=== PATIENT | female | born 2000 | race Caucasian/White ===

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

== ENCOUNTER 2021-02-01 19:50 | Emergency (ER) | payer MEDICAID ==
--- NOTE | 2021-02-01 21:17 | EDM.PDOC ---
ED HPI GENERAL MEDICAL PROBLEM - General Chief Complaint: Respiratory Problem Stated Complaint: 8 WEEKS , CONGESTION, LOSS OF TASTE Time Seen by Provider: 02/01/21 20:08 Source of Information: Reports: Patient History Limitations: Reports: No Limitations - History of Present Illness INITIAL COMMENTS - FREE TEXT/NARRATIVE: HISTORY AND PHYSICAL: History of present illness: Patient is a 20-year-old female who presents emergency room today with concern of possible COVID-19 infection. Patient states that over the past 3 days she has had a stuffy/runny nose and states that she was in contact with a friend who also had similar symptoms. Patient states that she has had a slight throat discomfort but states that she does not really have a sore throat and intermittent coughing. Patient states she lost her taste and smell this morning which is what prompted her to think that this was not a common cold and was in fact COVID-19. Patient states that she is approximately 8 weeks in gestation and follows with Dr. Aguilar at [facility] and denies any abdominal pain, cramping, change in discharge, or vaginal bleeding. Patient states that she has an appointment tomorrow at [facility] which is what brought her to the emergency room because she was concerned she possibly had COVID-19 and did not [facility] other moms or babies. Patient denies any other resuscitative symptoms. Patient denies fever, chills, chest pain, shortness of breath. Denies headache, neck stiff ness, change in vision, syncope, or near syncope. Denies nausea, vomiting, abdominal pain, diarrhea, constipation, or dysuria. Has not noted any blood in urine or stool. Patient has been eating and drinking appropriately. Review of systems: As per history of present illness and below otherwise all systems reviewed and negative. Past medical history: As per history of present illness and as reviewed below otherwise noncontributory. Surgical history: As per history of present illness and as reviewed below otherwise noncontributory. Social history: See social history for further information Family history: As per history of present illness and as reviewed below otherwise noncontributory. Physical exam: General: Patient is alert, oriented, and in no acute distress. Patient sitting comfortably on exam table. Vitals stable and reviewed by me. HEENT: Atraumatic, normocephalic, pupils equal and reactive bilaterally, negative for conjunctival pallor or scleral icterus, mucous membranes moist, TMs normal bilaterally, throat clear, neck supple, nontender, trachea midline. No drooling or trismus noted. No meningeal signs. No hot potato voice noted. Lungs: Clear to auscultation, breath sounds equal bilaterally, chest nontender. Heart: S1S2, regular rate and rhythm without overt murmur Abdomen: Soft, nondistended, nontender. Negative for masses or hepatosplenomegaly. Negative for costovertebral tenderness. Pelvis: Stable nontender. Genitourinary: Deferred. Rectal: Deferred. Skin: Intact, warm, dry. No lesions or rashes noted. Extremities: Atraumatic, negative for cords or calf pain. Neurovascular unremarkable. Neuro: Awake, alert, oriented. Cranial nerves II through XII unremarkable. Cerebellum unremarkable. Motor and sensory unremarkable throughout. Exam nonfocal. Notes: Strict return precautions thoroughly discussed with patient. Discussed importance for follow-up with primary care provider and women's health care provider. Voices understanding and is agreeable to plan of care. Denies any further questions or concerns at this time. Diagnostics: COVID-19 Therapeutics: None Prescription: None Impression: COVID-19 viral infection Plan: 1. Your COVID-19 screening is positive. That means you do have the coronavirus and are considered contagious. Your vital signs and oxygen saturation are well enough that you were able to monitor your symptoms at home. Continue to monitor for trouble breathing, new confusion or inability to arouse, bluish lips or face or any of the other symptoms we discussed -if this occurs please return to the emergency room.Continue to monitor your health at home for worsening symptoms so that you can be taken care of and treated quickly if needed. 2. Please self quarantine until 10 days have passed since your symptoms began AND you are fever free (<100.4 degrees fahrenheit) for 24 hours without the use of fever-reducing medications AND symptoms are improving. You should restrict activities outside of your home, except for getting medical care. Do not go to work, school, or public areas. Avoid using public transportation, ride-sharing, or taxis. Inform any persons that you have been in contact with since you started becoming symptomatic that you have tested positive; they should be made aware and take the appropriate steps as needed. 4. You may take Tylenol as needed for pain and fever management as directed per the bottle. This is safe to use in . 5. The [facility] department will be calling you and following up with you. The [place] COVID 19 Hotline phone number , They are open Sunday - Sunday 7am - 7pm. Follow up with your primary care provider for re-evaluation and re-testing after quarantine and discuss when you should be seen. 6. For more specific guidelines regarding isolation/quarantine please visit this website. https://www.health.pr.gov/sites/www/files/documents/Files/SHERI/coronavirus/Factsh eet_for_People_With_COVID-19.pdf Definitive disposition and diagnosis as appropriate pending reevaluation and review of above. - Related Data Allergies Allergy/AdvReac Type Severity Reaction Status Date / Time No Known Allergies Allergy Verified 02/01/21 20:12 Home Meds: Home Meds . 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: Musculoskeletal History: Reports: None Neurological History: Reports: None Psychiatric History: Reports: None Endocrine/Metabolic History: Reports: None Hematologic History: Reports: None Immunologic History: Reports: None Oncologic (Cancer) History: Reports: None Dermatologic History: Reports: None - Infectious Disease History Infectious Disease History: Reports: None - Past Surgical History Head Surgeries/Procedures: Reports: None Social & Family History - Family History Family Medical History: No Pertinent Family History - Tobacco Use Tobacco Use Status *Q: Never Tobacco User Second Hand Smoke Exposure: No - Caffeine Use Caffeine Use: Reports: None - Recreational Drug Use Recreational Drug Use: No ED ROS GENERAL - Review of Systems Review Of Systems: Comprehensive ROS is negative, except as noted in HPI. ED EXAM, GENERAL - Physical Exam Exam: See Below (see dictation) Course - Vital Signs Last Recorded V/S: Last Vital Signs Temp 98.2 F 02/01/21 20:08 Pulse 98 08/17/21 20:08 Resp 18 02/01/21 20:08 BP 139/96 H 02/01/21 20:08 Pulse Ox 98 02/01/21 20:08 - Orders/Labs/Meds Labs: Laboratory Tests 02/01/21 Range/Units 20:15 SARS-CoV-2 RNA (MIGUEL ANGEL) POSITIVE H (NEGATIVE) Departure - Departure Time of Disposition: 21:13 Disposition: Home, Self-Care 01 Clinical Impression: COVID-19 virus infection - Discharge Information Referrals: PCP,Not In Area [Primary Care Provider] - Additional Instructions: The following information is given to patients seen in the emergency department who are being discharged to home. This information is to outline your options for follow-up care. We provide all patients seen in our emergency department with a follow-up referral. The need for follow-up, as well as the timing and circumstances, are variable depending upon the specifics of your emergency department visit. If you don't have a primary care physician on staff, we will provide you with a referral. We always advise you to contact your personal physician following an emergency department visit to inform them of the circumstance of the visit and for follow-up with them and/or the need for any referrals to a consulting sp ecialist. The emergency department will also refer you to a specialist when appropriate. This referral assures that you have the opportunity for follow-up care with a specialist. All of these measure are taken in an effort to provide you with optimal care, which includes your follow-up. Under all circumstances we always encourage you to contact your private physician who remains a resource for coordinating your care. When calling for follow-up care, please make the office aware that this follow-up is from your recent emergency room visit. If for any reason you are refused follow-up, please contact the [facility] Emergency Department at and asked to speak to the emergency department charge nurse. [facility] [address] [place] [id number] [facility] [address] [place] [address] [facility] [address] [place] [address] 1. Your COVID-19 screening is positive. That means you do have the coronavirus and are considered contagious. Your vital signs and oxygen saturation are well enough that you were able to monitor your symptoms at home. Continue to monitor for trouble breathing, new confusion or inability to arouse, bluish lips or face or any of the other symptoms we discussed -if this occurs please return to the emergency room.Continue to monitor your health at home for worsening symptoms so that you can be taken care of and treated quickly if needed. 2. Please self quarantine until 10 days have passed since your symptoms began AND you are fever free (<100.4 degrees fahrenheit) for 24 hours without the use of fever-reducing medications AND symptoms are improving. You should restrict activities outside of your home, except for getting medical care. Do not go to work, school, or public areas. Avoid using public transportation, ride-sharing, or taxis. Inform any persons that you have been in contact with since you started becoming symptomatic that you have tested positive; they should be made aware and take the appropriate steps as needed. 4. You may take Tylenol as needed for pain and fever management as directed per the bottle. This is safe to use in . 5. The [facility] health department will be calling you and following up with you. The [place] COVID 19 Hotline phone number , They are open Sunday - Sunday 7am - 7pm. Follow up with your primary care provider for re-evaluation and re-testing after quarantine and discuss when you should be seen. 6. For more specific guidelines regarding isolation/quarantine please visit this website. https://www.health.[place].gov/sites/www/files/documents/Files/SEHRI/coronavirus/Factsh eet_for_People_With_COVID-19.pdf Sepsis Event Note (ED) - Evaluation Sepsis Screening Result: No Definite Risk - Focused Exam Vital Signs: Vital Signs Temp Pulse Resp BP Pulse Ox 02/01/21 20:08 98.2 F 98 18 139/96 H 98
== END 2021-02-01 21:44 | disposition home or self-care (01) ==
LOC: MW.ED 19:50
DX: O98.511 Other viral diseases complicating pregnancy, first trimester (principal); U07.1 COVID-19; Z3A.08 8 weeks gestation of pregnancy
CPT/HCPCS: 99283; U0002

== ENCOUNTER 2021-04-13 18:48 | Emergency (ER) | payer BC ==
[2021-04-13] MEDS ORDERED: Sodium Chloride 0.9% 1,000 ML IV ONE (20:58)
[2021-04-13 21:41] LABS: BLOOD UREA NITROGEN,BUN 9 mg/dL (7.0-18.0); CARBON DIOXIDE,CO2 22.2 mmol/L (21.0-32.0); CHLORIDE,CL 101 mmol/L (98-107); GLUCOSE RANDOM 80 mg/dL (74-106); LIPASE 64 U/L (73-393); POTASSIUM,K 3.3 mmol/L (3.5-5.1); SODIUM,NA 137 mmol/L (136-145)
--- NOTE | 2021-04-13 21:42 | EDM.PDOC ---
<Jose Macedo - Last Filed: 04/14/21 06:49> ED HPI GENERAL MEDICAL PROBLEM - General Chief Complaint: Abdominal Pain Stated Complaint: 17 WEEKS , LOWER ABDOMINAL PAIN Time Seen by Provider: 04/13/21 20:24 - History of Present Illness INITIAL COMMENTS - FREE TEXT/NARRATIVE: Patient was signed out to me by Hannah Villagomez PA-C pending ultrasound at 10 PM. I promptly performed a detailed physical examination and my examination was done after ED treatments were initiated by the signout provider. Patient has been under the care of previous provider up until this point. On my reevaluation patient was sitting comfortably and had no pain on examination. At this time ultrasound was pending. The radiological images were viewed by myself along with reading the report from the radiologist. OB ultrasound reveals single live intrauterine gestation with estimated menstrual age of 17 weeks 6 days. No acute abnormalities. After imaging I did discuss results with the patient. At this time she was stable for discharge. She was given strict return precautions. She was amenable discharge and had no further questions DISPOSITION: The patient was discharged home in stable condition. The patient will follow up with her aerodynamicist at her scheduled appointment CONDITION: Fair PROCEDURES: None FINAL IMPRESSION(S)/DIAGNOSES: 1. Acute pelvic pain in Jose Macedo M.D. - Related Data Allergies Allergy/AdvReac Type Severity Reaction Status Date / Time No Known Allergies Allergy Verified 04/13/21 20:01 Home Meds: Home Meds . [No Known Home Meds] 07/10/19 [History] Departure - Departure Time of Disposition: 00:36 Disposition: Home, Self-Care 01 Condition: Good Clinical Impression: Pelvic pain affecting - Discharge Information *PRESCRIPTION DRUG MONITORING PROGRAM REVIEWED*: No *COPY OF PRESCRIPTION DRUG MONITORING REPORT IN PATIENT ANDRÉS: No Instructions: Round Ligament Pain, Pelvic Pain, Female, [id number] Referrals: PCP,None [Primary Care Provider] - Forms: ED Department Discharge Additional Instructions: You were evaluated today on an emergent basis. At this time your imaging was normal. Given that you do not have any vaginal bleeding and your pain has significantly improved I do not believe that you need to be observed here in the emergency department or the hospital. I recommend that you follow-up with your aerodynamicist for further evaluation. As discussed if you have any worsening pain please return to the emergency department for further evaluation. This includes vaginal bleeding. [facility] [address] [place] [address] [facility] [address] [place] [id number] The patient is informed of any results of their evaluation and diagnostic workup and all questions are answered. They are given discharge instructions and return precautions. The patient is stable for discharge. The patient states they understand and agree with the plan and that they will return if their symptoms get worse or if they have any new concerns. The following information is given to patients seen in the emergency department who are being discharged to home. This information is to outline your options for follow-up care. We provide all patients seen in our emergency department with a follow-up referral. The need for follow-up, as well as the timing and circumstances, are variable depending upon the specifics of your emergency department visit. If you don't have a primary care physician on staff, we will provide you with a referral. We always advise you to contact your personal physician following an emergency department visit to inform them of the circumstance of the visit and for follow-up with them and/or the need for any referrals to a consulting specialist. The emergency department will also refer you to a specialist when appropriate. This referral assures that you have the opportunity for follow-up care with a specialist. All of these measure are taken in an effort to provide you with optimal care, which includes your follow-up. Under all circumstances we always encourage you to contact your private physician who remains a resource for coordinating your care. When calling for follow-up care, please make the office aware that this follow-up is from your recent emergency room visit. If for any reason you are refused follow-up, please contact the [facility] Emergency Department at and asked to speak to the emergency department charge nurse. <Hannah Villagomez - Last Filed: 04/15/21 11:58> ED HPI GENERAL MEDICAL PROBLEM - General Source of Information: Reports: Patient History Limitations: Reports: No Limitations - History of Present Illness INITIAL COMMENTS - FREE TEXT/NARRATIVE: HISTORY AND PHYSICAL: History of present illness: Patient is a 20-year-old female who presents emergency room today with concern of 10 out of 10 episodes of lower abdominal pain in second trimester . Patient states that she is 17 weeks and 3 days and has had an ultrasound confirming this and follows with Dr. Aguilar at [facility]. Patient states that today when she was working, she began developing severe lower abdominal pain and states that work ended up sending her home. Patient states that she had to call her significant other to come pick her up as the pain was not able to be tolerated. Patient denies any change in vaginal discharge or vaginal bleeding. Patient states that she has not had any complications thus far this and denies any trauma or injury. Patient states that she has not yet had her anatomy scan and has a scheduled this next week. Patient states that her pain is slightly improved now in the emergency room but she continues to have episodes where it reoccurs. Patient rates her pain currently a 4 out of 10. Patient denies any health history or any other symptoms or concerns. Patient denies fever, chills, chest pain, shortness of breath, or cough. Denies headache, neck stiff ness, change in vision, syncope, or near syncope. Denies nausea, vomiting, diarrhea, constipation, or dysuria. Has not noted any blood in urine or stool. Patient has been eating and drinking appropriately. Review of systems: As per history of present illness and below otherwise all systems reviewed and negative. Past medical history: As per history of present illness and as reviewed below otherwise noncontributory. Surgical history: As per history of present illness and as reviewed below otherwise noncontributory. Social history: See social history for further information Family history: As per history of present illness and as reviewed below otherwise noncontributory. Physical exam: General: Patient is alert, oriented, and in no acute distress. Patient laying comfortably on exam table. Vitals stable and reviewed by me. HEENT: Atraumatic, normocephalic, pupils equal and reactive bilaterally, negative for conjunctival pallor or scleral icterus, mucous membranes moist, neck supple, nontender, trachea midline. No drooling or trismus noted. No meningeal signs. No hot potato voice noted. Lungs: Clear to auscultation, breath sounds equal bilaterally, chest nontender. Heart: S1S2, regular rate and rhythm without overt murmur Abdomen: Exam of abdomen is limited due to BMI of 39.9. Otherwise, mild- moderate suprapubic tenderness without guarding, negative rebound. Otherwise, Soft, nondistended. Negative for masses or hepatosplenomegaly. Negative for costovertebral tenderness. Pelvis: Stable nontender. Genitourinary: Deferred. Rectal: Deferred. Skin: Intact, warm, dry. No lesions or rashes noted. Extremities: Atraumatic, negative for cords or calf pain. Neurovascular unremarkable. Neuro: Awake, alert, oriented. Cranial nerves II through XII unremarkable. Cerebellum unremarkable. Motor and sensory unremarkable throughout. Exam nonfocal. Notes: heart tones at bedside 145 Patient is a 20-year-old otherwise female who presents emergency room today secondary to lower abdominal pain beginning this afternoon. Upon arrival to the ED, patient is vitally stable and well-appearing on exam. Patient does have mild to moderate suprapubic tenderness on exam without guarding and negative rebound or Snow sign. Will obtain basic lab work, provide fluid bolus, and second trimester ultrasound. CBC does show mild anemia with hemoglobin 11.5, hematocrit 34.4 with MCV and MCH microcytic at 79.6 and 26.6 respectively. Otherwise mild derangements of CBC unremarkable. Urinalysis does show 40 ketones, otherwise clear for infection. CMP does show mild hypokalemia at 3.3, otherwise mild derangements of CMP un remarkable. Dr. Macedo has assumed care of patient and will follow [place] diagnostics and disposition for patient. Diagnostics: CBC, CMP, UA, Lipase, 2nd trimester US Therapeutics: NS Prescription: Impression: Abdominal pain in Plan: Definitive disposition and diagnosis as appropriate pending reevaluation and review of above. 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: Musculoskeletal History: Reports: None Neurological History: Reports: None Psychiatric History: Reports: None Endocrine/Metabolic History: Reports: None Hematologic History: Reports: None Immunologic History: Reports: None Oncologic (Cancer) History: Reports: None Dermatologic History: Reports: None - Infectious Disease History Infectious Disease History: Reports: None - Past Surgical History Head Surgeries/Procedures: Reports: None Social & Family History - Family History Family Medical History: No Pertinent Family History - Caffeine Use Caffeine Use: Reports: None ED ROS GENERAL - Review of Systems Review Of Systems: Comprehensive ROS is negative, except as noted in HPI. ED EXAM, GENERAL - Physical Exam Exam: See Below (see dictation) Course - Vital Signs Last Recorded V/S: Last Vital Signs Temp 96.9 F 04/13/21 19:56 Pulse 79 04/14/21 00:55 Resp 17 04/14/21 00:55 BP 124/72 04/14/21 00:55 Pulse Ox 99 04/14/21 00:55 - Orders/Labs/Meds Labs: Laboratory Tests 04/13/21 04/13/21 04/13/21 Range/Units 20:55 21:15 21:15 WBC 10.11 (4.0-11.0) K/uL RBC 4.32 (4.30-5.90) M/uL Hgb 11.5 L (12.0-16.0) g/dL Hct 34.4 L (36.0-46.0) % MCV 79.6 L (80.0-98.0) fL MCH 26.6 L (27.0-32.0) pg MCHC 33.4 (31.0-37.0) g/dL RDW Std Deviation 40.3 (28.0-62.0) fl RDW Coeff of Sherry 14 (11.0-15.0) % Plt Count 250 (150-400) K/uL MPV 10.40 (7.40-12.00) fL Neut % (Auto) 72.7 (48.0-80.0) % Lymph % (Auto) 20.0 (16.0-40.0) % [place] % (Auto) 6.3 (0.0-15.0) % Eos % (Auto) 0.9 (0.0-7.0) % Baso % (Auto) 0.1 (0.0-1.5) % Neut # (Auto) 7.4 H (1.4-5.7) K/uL Lymph # (Auto) 2.0 (0.6-2.4) K/uL [place] # (Auto) 0.6 (0.0-0.8) K/uL Eos # (Auto) 0.1 (0.0-0.7) K/uL Baso # (Auto) 0.0 (0.0-0.1) K/uL Nucleated RBC % 0.0 /100WBC Nucleated RBCs # 0 K/uL Sodium 137 (136-145) mmol/L Potassium 3.3 L (3.5-5.1) mmol/L Chloride 101 (98-107) mmol/L Carbon Dioxide 22.2 (21.0-32.0) mmol/L BUN 9 (7.0-18.0) mg/dL Creatinine 0.5 L (0.6-1.0) mg/dL Est Cr Clr Drug Dosing 162.85 mL/min Estimated GFR (MDRD) > 60.0 ml/min Glucose 80 (74-106) mg/dL Calcium 9.4 (8.5-10.1) mg/dL Total Bilirubin 0.1 L (0.2-1.0) mg/dL AST 13 L (15-37) IU/L ALT 17 (14-63) IU/L Alkaline Phosphatase 46 (46-116) U/L Total Protein 7.6 (6.4-8.2) g/dL Albumin 3.0 L (3.4-5.0) g/dL Globulin 4.6 H (2.6-4.0) g/dL Albumin/Globulin Ratio 0.7 L (0.9-1.6) Lipase 64 L (73-393) U/L Urine Color YELLOW Urine Appearance CLEAR Urine pH 6.0 (5.0-8.0) Ur Specific [place] >= 1.030 (1.001-1.035) Urine Protein NEGATIVE (NEGATIVE) mg/dL Urine Glucose (UA) NEGATIVE (NEGATIVE) mg/dL Urine Ketones 40 H (NEGATIVE) mg/dL Urine Occult Blood NEGATIVE (NEGATIVE) Urine Nitrite NEGATIVE (NEGATIVE) Urine Bilirubin NEGATIVE (NEGATIVE) Urine Urobilinogen 0.2 (<2.0) EU/dL Ur Leukocyte Esterase NEGATIVE (NEGATIVE) Meds: Medications Discontinued Medications Generic Name Dose Route Start Last Admin Trade Name Freq PRN Reason Stop Dose Admin Sodium Chloride 1,000 mls @ 999 mls/hr 04/13/21 20:58 04/13/21 21:18 Normal Saline IV 04/13/21 21:58 999 mls/hr BOLUS ONE Administration Sepsis Event Note (ED) - Evaluation Sepsis Screening Result: No Definite Risk
--- NOTE | 2021-04-14 00:33 | US ---
INDICATION: 17 weeks . 03/27 colicky abdominal pain. LIMITED OBSTETRICAL ULTRASOUND Technique: Multiple transabdominal sonographic images of the gravid uterus were performed. Comparison: No previous comparison studies are currently available. Findings: There is a single, live, intrauterine gestation in variable position. cardiac activity is present with a heart rate of 150 BPM. The placenta is anterior in position and there is no evidence of previa or abruption. Amniotic fluid volume appears subjectively normal and the amniotic fluid index measures cm. measurements show: BPD 4.0 centimeters, 18 weeks 2 days. HC 14.8 centimeters, 18 weeks 0 days. AC 11.7 centimeters, 17 weeks 4 days. FL 2.4 centimeters, 17 weeks 3 days. These measurements are concordant and yield a composite estimated menstrual age of 17 weeks 6 days which corresponds to an HOLLIS of 09/15/2021. Estimated weight is 196 grams. Detailed evaluation of anatomy was not performed. The maternal right ovary appears normal. The maternal left ovary was not visualized. No free pelvic fluid is evident. IMPRESSION: Single, live, intrauterine gestation with estimated menstrual age of 17 weeks 6 days and HOLLIS of 09/15/2021. No acute abnormalities are identified. PHIL ESTRADA MD [employer] Dictated by Faraz Estrada MD @ 04/14/2021 12:30:47 AM Dictated by: Faraz Estrada MD @ 04/14/2021 00:32:32 (Electronically Signed)
== END 2021-04-14 00:56 | disposition home or self-care (01) ==
LOC: MW.ED 18:48
DX: O99.891 Other specified diseases and conditions complicating pregnancy (principal); R10.2 Pelvic and perineal pain; Z3A.17 17 weeks gestation of pregnancy
CPT/HCPCS: 36415; 76805; 80053; 81003; 83690; 85025; 99284; J7030

== ENCOUNTER 2021-08-26 01:34 | Inpatient (IN) | payer BC ==
[2021-08-26] MEDS ORDERED: Methylergonovine 0.2 MG/1 ML Amp IM PRN ×2 (02:00→20:36)
[2021-08-26] MEDS ORDERED: Misoprostol 200 MCG Tab PO PRN (02:00)
[2021-08-26] MEDS ORDERED: Sodium Chloride 0.9% 10 ML Syringe FLUSH PRN (02:00)
[2021-08-26] MEDS ORDERED: Ondansetron 4 MG/2 ML SDV IVPUSH PRN (02:00)
[2021-08-26] MEDS ORDERED: Sodium Chloride 0.9% 2.5 ML Syringe FLUSH PRN (02:00)
[2021-08-26] MEDS ORDERED: Terbutaline 1 MG/ML SDV SUBCUT PRN (02:00)
[2021-08-26] MEDS ORDERED: Sodium Chloride 0.9% 20 ML SDV IV PRN (02:00)
[2021-08-26] MEDS ORDERED: Water For Irrigation,Sterile 1,000 ML Container IRR PRN (02:00)
[2021-08-26] MEDS ORDERED: Oxytocin/0.9 % Sodium Chloride 30 UNIT/500 ML BAG IV SCH ×2 (02:00)
[2021-08-26] MEDS ORDERED: Tranexamic Acid 1,000 MG in Sodium Chloride 0.9% 100 ML IV PRN ×2 (02:00→20:36)
[2021-08-26] MEDS ORDERED: Misoprostol 25 MCG (1/4 of 100 MCG) Tab VAG PRN ×2 (02:00)
[2021-08-26] MEDS ORDERED: Carboprost Tromethamine 250 MCG/1 ML Amp IM PRN ×2 (02:00→20:36)
[2021-08-26] MEDS ORDERED: Lidocaine 1% 50 ML MDV INJECT PRN (02:00)
[2021-08-26] MEDS ORDERED: Butorphanol 1 MG/ML SDV IVPUSH PRN (02:00)
[2021-08-26] MEDS ORDERED: Ampicillin 2 GM in Sodium Chloride 0.9% 100 ML IV ONE (08:04)
[2021-08-26] MEDS: Lactated Ringers 1,000 ML IV SCH ×2 (08:15→16:45)
[2021-08-26] MEDS ORDERED: Ampicillin 1 GM in Sodium Chloride 0.9% 50 ML IV SCH (08:30)
[2021-08-26] MEDS ORDERED: Betamethasone Acetate/Betamethasone Sod Phosphate 30 MG/5 ML MDV IM ONE (09:00)
[2021-08-26] MEDS ORDERED: Oxytocin/0.9 % Sodium Chloride 30 UNIT/500 ML BAG ONE (11:14)
[2021-08-26] MEDS: Ampicillin 1 GM in Sodium Chloride 0.9% 50 ML IV SCH ×2 (12:30→16:35)
[2021-08-26] MEDS ORDERED: ePHEDrine 50 MG/ML SDV IVPUSH PRN ×2 (12:31)
[2021-08-26] MEDS ORDERED: Ropivacaine 200 MG in Premix Bag 1 BAG EPIDUR SCH (12:45)
[2021-08-26] MEDS ORDERED: Misoprostol 200 MCG Tab RECTAL PRN (20:36)
[2021-08-26] MEDS ORDERED: Bisacodyl 10 MG Supp RECTAL PRN (20:36)
[2021-08-26] MEDS ORDERED: Acetaminophen 500 MG Tab PO PRN ×2 (20:36)
[2021-08-26] MEDS ORDERED: Benzocaine/Menthol 20%-0.5% Spray 78 GM Cannister TOP PRN (20:36)
[2021-08-26] MEDS ORDERED: oxyCODONE 5 MG Tab PO PRN (20:36)
[2021-08-26] MEDS ORDERED: Docusate Sodium 100 MG Cap PO PRN (20:36)
[2021-08-26] MEDS ORDERED: Ibuprofen 800 MG Tab PO PRN (20:36)
[2021-08-26] MEDS ORDERED: Ibuprofen 400 MG Tab PO PRN (20:36)
[2021-08-26] MEDS ORDERED: Lanolin 100% Cream 7 GM Tube TOP PRN (20:36)
[2021-08-26] MEDS ORDERED: Witch Hazel Medicated Pads 40/Jar TOP PRN (20:36)
== END 2021-08-28 23:51 | disposition home or self-care (01) | DRG 560 ==
LOC: MW.OBCHECK 01:34 → MW.OB 01:35 → MW.OBCHECK 02:01 → MW.OB 02:01 → OBSVTOIN 20:08 → MW.OB 23:55
PROVIDERS: ADMIT Obstetrics & Gynecology; ATTEND Obstetrics & Gynecology
PROC: 10E0XZZ Delivery of Products of Conception, External Approach (ICD-10-PCS; principal; 2021-08-26)
PROC: 3E0P7VZ Introduction of Hormone into Female Reproductive, Via Natural or Artificial Opening (ICD-10-PCS; 2021-08-26)
PROC: 0UQGXZZ Repair Vagina, External Approach (ICD-10-PCS; 2021-08-26)
PROC: 3E0R3BZ Introduction of Anesthetic Agent into Spinal Canal, Percutaneous Approach (ICD-10-PCS; 2021-08-26)
PROC: 00HU33Z Insertion of Infusion Device into Spinal Canal, Percutaneous Approach (ICD-10-PCS; 2021-08-26)
DX: O42.113 Preterm premature rupture of membranes, onset of labor more than 24 hours following rupture, third trimester (principal); Z3A.36 36 weeks gestation of pregnancy; Z37.0 Single live birth; O99.214 Obesity complicating childbirth; Z20.822 Contact with and (suspected) exposure to COVID-19
CPT/HCPCS: 01967; 36415; 51702; 59025; 59409; 82803; 84112; 85014; 85018; 85027; 86592; 86850; 86900; 86901; 87653; A9270-GY; J0290; J0702; J2590; J7120; U0002

== ENCOUNTER 2023-07-09 12:35 | Emergency (ER) | payer SELFPAY | END 2023-07-09 14:26 | disposition left against medical advice (07) | LOC: MW.ED 12:35 | DX: Z53.21 Procedure and treatment not carried out due to patient leaving prior to being seen by health care provider (principal) ==

== ENCOUNTER 2025-03-28 12:29 | Emergency (ER) | payer OTHER | END 2025-03-28 15:13 | disposition home or self-care (01) | LOC: MW.ED 12:29 | DX: J06.9 Acute upper respiratory infection, unspecified (principal); Z86.16 Personal history of COVID-19; Z79.899 Other long term (current) drug therapy; Z75.3 Unavailability and inaccessibility of health-care facilities | CPT/HCPCS: 71045; 87428; 94640; 99285; J7620; 99283; A9270-GY ==